=== PATIENT | female | born 1985 | race Caucasian/White ===

== ENCOUNTER 2020-11-04 11:50 | Outpatient (CLI) | payer OTHER | END 2020-11-04 11:51 | disposition home or self-care (01) | LOC: BURRAD 11:50 | PROVIDERS: ATTEND Nurse Practitioner Family | DX: M54.5 Low back pain (principal); M79.89 Other specified soft tissue disorders; Z87.828 Personal history of other (healed) physical injury and trauma | CPT/HCPCS: 72100 ==